=== PATIENT | male | born 1970 | race Caucasian/White ===

== ENCOUNTER 2019-04-18 11:12 | Inpatient (IN) ==
[2019-04-18] MEDS ORDERED: ACETAMINOPHEN 325 MG TABLET PO PRN (11:30)
[2019-04-18] MEDS ORDERED: DOCUSATE SODIUM 100 MG CAPSULE PO PRN (11:30)
[2019-04-18] MEDS ORDERED: ENOXAPARIN 30 MG/0.3 ML SYRINGE SUBCUT SCH (11:30)
[2019-04-18] MEDS: ONDANSETRON 4 MG/2 ML VIAL IV PRN ×2 (13:19→20:03)
[2019-04-18] MEDS: SODIUM CHLORIDE 0.9% 1,000 ML IV SCH (13:26)
[2019-04-18] MEDS ORDERED: LORazepam 1 MG TABLET PO PRN (13:54)
[2019-04-18 14:08] LABS: Basophils % 0.4 % (0.0-0.8); Eosinophils # 0.2 10*3/uL (0.0-0.87); Eosinophils % 1.8 % (0.00-10.9); Hematocrit 30.9 VOL% (42.0-52.0); Hemoglobin 10.6 GM/DL (14.0-18.0); Immature Granulocytes % 1.2 %; Immature Granulocytes Absolute 0.13 #; Lymphocytes # 1.5 10*3/uL (1.4-4.0); Lymphocytes % 13.9 % (21.2-54.2); Mean Corpuscular HGB Conc 34.3 GM/DL (32-36); Mean Corpuscular Volume 113.2 FL (87-102); Mean Platelet Volume 11.9 FL (9.6-12.0); Monocytes % 7.4 % (1.7-12.7); Neutrophils % 75.3 % (38.7-73.9); Platelet Count 182 T/CUMM (130-400); Red Blood Count 2.73 MC/CUMM (3.8-5.5); Red Cell Distribution Width 17.6 % (9.3-17.3); White Blood Count 10.9 T/CUMM (4-12)
[2019-04-18 14:12] LABS: INR 1.1; PT Patient Result 11.7 SECS (9.6-12.2); Partial Thromboplastin Time 25.9 SECS (20.8-36.0)
[2019-04-18 14:38] LABS: Albumin 2.3 G/DL (3.4-5.0); Bilirubin,Total 4.5 MG/DL (0.2-1.0); Calcium 8.5 MG/DL (8.5-10.1); Osmolality,Calculated 275.5 MOS/KG (273-304); Total Protein 6.8 G/DL (6.4-8.3)
[2019-04-18 15:26] LABS: Hepatitis B Core IgM Quant 0.18 Index; Hepatitis B Surface Ag Quant < 0.10 Index; Hepatitis B Surface Ag Result Negative (Negative); Hepatitis C Virus Ab Quant 0.11 Index; Hepatitis C Virus Ab Result Negative (Negative)
[2019-04-18 15:58] LABS: Apearance,Urine CLEAR (Clear); Bilirubin,Urine Negative (Negative); Blood, Urine Negative (Negative); Glucose,Urine (UA) Negative (Negative); Ketones,Urine Negative (Negative); Nitrite,Urine Negative (Negative); Protein,Urine Negative; RBC,Urine 1 /HPF (0-4); Urine Color Yellow (Yellow); Urine Specific Gravity 1.031 (1.001-1.035); Urine Urobilinogen < 2.0 EU/DL (0.2-1.0); WBC,Urine <1 /HPF (0-6)
[2019-04-18] MEDS: PROMETHAZINE 25 MG TABLET PO PRN ×2 (16:17→21:50)
[2019-04-19] MEDS: ONDANSETRON 4 MG/2 ML VIAL IV PRN ×3 (03:22→14:21)
[2019-04-19] MEDS: SODIUM CHLORIDE 0.9% 1,000 ML IV SCH ×2 (03:26→15:53)
[2019-04-19 06:12] LABS: % Iron Saturation 59.2 % (18-50); Albumin 2.1 G/DL (3.4-5.0); Calcium 8.1 MG/DL (8.5-10.1); Osmolality,Calculated 274.5 MOS/KG (273-304); Total Protein 6.2 G/DL (6.4-8.3)
[2019-04-19] MEDS: PANTOPRAZOLE 40 MG TABLET PO SCH (08:18)
[2019-04-19] MEDS ORDERED: ACETAMINOPHEN 325 MG TABLET PO PRN (11:25)
[2019-04-19] MEDS ORDERED: FEXOFENADINE 180 MG TABLET PO PRN (11:43)
[2019-04-19] MEDS: PROMETHAZINE 25 MG TABLET PO PRN ×2 (12:03→21:05)
[2019-04-19] MEDS: LOSARTAN 50 MG TABLET PO SCH (14:23)
[2019-04-19] MEDS: PIPERACILLIN/TAZOBACTAM 3,375 MG in SODIUM CHLORIDE 0.9% 100 ML IV SCH (15:53)
[2019-04-19] MEDS: GABAPENTIN 600 MG TABLET PO SCH (21:05)
[2019-04-20] MEDS: PIPERACILLIN/TAZOBACTAM 3,375 MG in SODIUM CHLORIDE 0.9% 100 ML IV SCH ×3 (01:24→18:04)
[2019-04-20 04:24] LABS: Basophils % 0.6 % (0.0-0.8); Eosinophils # 0.3 10*3/uL (0.0-0.87); Eosinophils % 4.2 % (0.00-10.9); Hematocrit 29.8 VOL% (42.0-52.0); Hemoglobin 9.9 GM/DL (14.0-18.0); Immature Granulocytes % 1.5 %; Lymphocytes # 1.3 10*3/uL (1.4-4.0); Lymphocytes % 19.8 % (21.2-54.2); Mean Corpuscular HGB Conc 33.2 GM/DL (32-36); Mean Corpuscular Volume 115.1 FL (87-102); Mean Platelet Volume 11.5 FL (9.6-12.0); Monocytes % 10.1 % (1.7-12.7); Neutrophils % 63.8 % (38.7-73.9); Platelet Count 162 T/CUMM (130-400); Red Blood Count 2.59 MC/CUMM (3.8-5.5); Red Cell Distribution Width 17.8 % (9.3-17.3); White Blood Count 6.7 T/CUMM (4-12)
[2019-04-20 04:54] LABS: Anisocytosis 1+; Hypochromasia 1+; Platelet Estimate Adequate; Target Cells Few
[2019-04-20 05:02] LABS: Albumin 2.1 G/DL (3.4-5.0); Bilirubin,Total 3.8 MG/DL (0.2-1.0); Osmolality,Calculated 279.1 MOS/KG (273-304); Total Protein 6.1 G/DL (6.4-8.3)
[2019-04-20] MEDS: SODIUM CHLORIDE 0.9% 1,000 ML IV SCH ×2 (06:00→21:00)
[2019-04-20] MEDS: ONDANSETRON 4 MG/2 ML VIAL IV PRN ×2 (07:30→14:58)
[2019-04-20] MEDS: LEVOTHYROXINE 25 MCG TABLET PO SCH (08:35)
[2019-04-20] MEDS: LOSARTAN 50 MG TABLET PO SCH (09:22)
[2019-04-20] MEDS: ALLOPURINOL 100 MG TABLET PO SCH (09:44)
[2019-04-20] MEDS: MONTELUKAST 10 MG TABLET PO SCH (09:44)
[2019-04-20] MEDS: PANTOPRAZOLE 40 MG TABLET PO SCH (09:44)
[2019-04-20] MEDS: GABAPENTIN 600 MG TABLET PO SCH (20:47)
[2019-04-20] MEDS: PROMETHAZINE 25 MG TABLET PO PRN (20:48)
[2019-04-21] MEDS: PIPERACILLIN/TAZOBACTAM 3,375 MG in SODIUM CHLORIDE 0.9% 100 ML IV SCH ×3 (00:41→16:21)
[2019-04-21 06:14] LABS: Basophils % 0.6 % (0.0-0.8); Eosinophils # 0.3 10*3/uL (0.0-0.87); Eosinophils % 4.1 % (0.00-10.9); Hematocrit 29.5 VOL% (42.0-52.0); Hemoglobin 9.7 GM/DL (14.0-18.0); Immature Granulocytes % 1.4 %; Lymphocytes # 1.5 10*3/uL (1.4-4.0); Lymphocytes % 21.1 % (21.2-54.2); Mean Corpuscular HGB Conc 32.9 GM/DL (32-36); Mean Corpuscular Volume 115.7 FL (87-102); Mean Platelet Volume 12.1 FL (9.6-12.0); Monocytes % 9.8 % (1.7-12.7); NRBC # 0.02 10*3/uL; Platelet Count 177 T/CUMM (130-400); Red Blood Count 2.55 MC/CUMM (3.8-5.5)
[2019-04-21 06:41] LABS: Target Cells 1+
[2019-04-21 06:42] LABS: Anisocytosis 1+; Macrocytosis 1+; Platelet Estimate Normal
[2019-04-21 06:54] LABS: Bilirubin,Total 4.1 MG/DL (0.2-1.0); Calcium 8.1 MG/DL (8.5-10.1); Osmolality,Calculated 275.4 MOS/KG (273-304); Total Protein 6.2 G/DL (6.4-8.3)
[2019-04-21] MEDS: LEVOTHYROXINE 25 MCG TABLET PO SCH ×2 (07:42→08:56)
[2019-04-21] MEDS: ALLOPURINOL 100 MG TABLET PO SCH (08:56)
[2019-04-21] MEDS: oxyCODONE IR 5 MG TABLET PO PRN ×2 (08:56→16:15)
[2019-04-21] MEDS: MONTELUKAST 10 MG TABLET PO SCH (08:56)
[2019-04-21] MEDS: ONDANSETRON 4 MG/2 ML VIAL IV PRN (08:57)
[2019-04-21] MEDS: PANTOPRAZOLE 40 MG TABLET PO SCH (08:57)
[2019-04-21] MEDS: SODIUM CHLORIDE 0.9% 1,000 ML IV SCH ×2 (08:58→22:53)
[2019-04-21] MEDS: LOSARTAN 50 MG TABLET PO SCH (08:58)
[2019-04-21] MEDS: GABAPENTIN 600 MG TABLET PO SCH (20:38)
[2019-04-21] MEDS: PROMETHAZINE 25 MG TABLET PO PRN (20:38)
[2019-04-22] MEDS: PIPERACILLIN/TAZOBACTAM 3,375 MG in SODIUM CHLORIDE 0.9% 100 ML IV SCH ×3 (00:15→17:20)
[2019-04-22] MEDS: oxyCODONE IR 5 MG TABLET PO PRN ×2 (00:15→15:23)
[2019-04-22 04:41] LABS: Basophils % 0.5 % (0.0-0.8); Eosinophils # 0.3 10*3/uL (0.0-0.87); Eosinophils % 4.1 % (0.00-10.9); Hemoglobin 9.4 GM/DL (14.0-18.0); Immature Granulocytes % 1.1 %; Immature Granulocytes Absolute 0.08 #; Lymphocytes # 1.7 10*3/uL (1.4-4.0); Lymphocytes % 22.9 % (21.2-54.2); Mean Corpuscular HGB Conc 33.6 GM/DL (32-36); Mean Corpuscular Volume 115.7 FL (87-102); Mean Platelet Volume 11.8 FL (9.6-12.0); Monocytes % 10.5 % (1.7-12.7); Neutrophils % 60.9 % (38.7-73.9); Platelet Count 180 T/CUMM (130-400); Red Blood Count 2.42 MC/CUMM (3.8-5.5); Red Cell Distribution Width 17.2 % (9.3-17.3); White Blood Count 7.4 T/CUMM (4-12)
[2019-04-22 05:06] LABS: Albumin 2.1 G/DL (3.4-5.0); Bilirubin,Total 2.8 MG/DL (0.2-1.0); Calcium 7.8 MG/DL (8.5-10.1); Osmolality,Calculated 273.5 MOS/KG (273-304); Total Protein 6.2 G/DL (6.4-8.3)
[2019-04-22 05:13] LABS: Hypochromasia 1+; Macrocytosis Slight; Platelet Estimate Adequate
[2019-04-22] MEDS ORDERED: MIDAZOLAM 2 MG/2 ML VIAL IV ONE (08:52)
[2019-04-22] MEDS ORDERED: fentaNYL 100 MCG/2 ML VIAL IV ONE (08:52)
[2019-04-22] MEDS ORDERED: DIAZEPAM 5 MG TABLET PO ONE (10:00)
[2019-04-22 11:56] LABS: Antinuclear Ab, S 0.3 U; Cyclic Citrull Peptide Ab Mayo < 15.6 U
[2019-04-22] MEDS ORDERED: ONDANSETRON 4 MG/2 ML VIAL ONE (13:40)
[2019-04-22] MEDS ORDERED: MIDAZOLAM 2 MG/2 ML VIAL ONE (13:40)
[2019-04-22] MEDS ORDERED: fentaNYL 100 MCG/2 ML VIAL ONE (13:40)
[2019-04-22] MEDS: ONDANSETRON 4 MG/2 ML VIAL IV PRN (14:08)
[2019-04-22] MEDS: PANTOPRAZOLE 40 MG TABLET PO SCH (15:23)
[2019-04-22] MEDS: LOSARTAN 50 MG TABLET PO SCH (15:24)
[2019-04-22] MEDS: LEVOTHYROXINE 25 MCG TABLET PO SCH (15:24)
[2019-04-22] MEDS: ALLOPURINOL 100 MG TABLET PO SCH (15:24)
[2019-04-22] MEDS: MONTELUKAST 10 MG TABLET PO SCH (15:24)
[2019-04-22 16:02] VITALS: BP 115/74
[2019-04-22] MEDS: SODIUM CHLORIDE 0.9% 1,000 ML IV SCH (18:14)
== END 2019-04-22 18:30 | disposition home or self-care (01) | DRG 445 ==
LOC: N.2E
PROVIDERS: ADMIT Family Medicine; ATTEND Family Medicine

== ENCOUNTER 2019-05-30 10:00 | Inpatient (IN) ==
[2019-05-30] MEDS ORDERED: LACTATED RINGERS 1,000 ML IV ONE (14:05)
[2019-05-30] MEDS: ONDANSETRON 4 MG/2 ML VIAL IV PRN ×2 (14:20→19:15)
[2019-05-30] MEDS ORDERED: BISACODYL 5 MG TABLET PO PRN (14:23)
[2019-05-30] MEDS ORDERED: ALBUTEROL/IPRATROPIUM 3 ML NEB RESP TX PRN (14:23)
[2019-05-30] MEDS ORDERED: HYDROmorphone 2 MG/1 ML VIAL IV PRN (14:23)
[2019-05-30] MEDS ORDERED: LACTATED RINGERS 1,000 ML IV SCH (14:30)
[2019-05-30] MEDS ORDERED: PIPERACILLIN/TAZOBACTAM 3,375 MG in SODIUM CHLORIDE 0.9% 100 ML IV SCH (14:30)
[2019-05-30 15:04] LABS: Basophils # 0.1 10*3/uL (0.0-0.2); Basophils % 0.2 % (0.0-0.8); Hematocrit 43.4 VOL% (42.0-52.0); Hemoglobin 15.6 GM/DL (14.0-18.0); Immature Granulocytes % 2.2 %; Immature Granulocytes Absolute 0.58 #; Lymphocytes # 2.2 10*3/uL (1.4-4.0); Mean Corpuscular HGB Conc 35.9 GM/DL (32-36); Mean Corpuscular Volume 101.9 FL (87-102); Mean Platelet Volume 11.1 FL (9.6-12.0); Monocytes % 6.8 % (1.7-12.7); Neutrophils % 82.8 % (38.7-73.9); Platelet Count 542 T/CUMM (130-400); Red Blood Count 4.26 MC/CUMM (3.8-5.5); Red Cell Distribution Width 12.4 % (9.3-17.3)
[2019-05-30 15:23] LABS: Albumin 4.4 G/DL (3.4-5.0); Bilirubin,Total 0.9 MG/DL (0.2-1.0); Calcium 10.7 MG/DL (8.5-10.1); Osmolality,Calculated 251.9 MOS/KG (273-304); Total Protein 9.5 G/DL (6.4-8.3)
[2019-05-30] MEDS: SODIUM CHLORIDE 0.9% 1,000 ML IV SCH (15:27)
[2019-05-30] MEDS ORDERED: SODIUM CHLORIDE 0.9% 1,000 ML IV ONE (15:45)
[2019-05-30] MEDS ORDERED: CALCIUM GLUCONATE 1,000 MG in SODIUM CHLORIDE 0.9% 100 ML IV ONE (15:45)
[2019-05-30 17:03] LABS: Lymphocytes 6 % (20-55); Platelet Estimate Increased; Segmented Neutrophils 83 % (50-85); Total Cells Counted 100
[2019-05-30 18:32] LABS: Calcium 9.9 MG/DL (8.5-10.1); Osmolality,Calculated 254.6 MOS/KG (273-304)
[2019-05-30 18:43] LABS: Free T4 (Free Thyroxine) 1.22 NG/DL (0.76-1.46); Thyroid Stimulating Hormone 4.32 uIU/ml (0.358-3.74)
[2019-05-30] MEDS: GABAPENTIN 600 MG TABLET PO SCH (21:26)
[2019-05-30] MEDS: DOCUSATE SODIUM 100 MG CAPSULE PO SCH (21:26)
[2019-05-31] MEDS ORDERED: SODIUM CHLORIDE 0.9% 100 ML IV ONE (01:57)
[2019-05-31] MEDS: ONDANSETRON 4 MG/2 ML VIAL IV PRN ×3 (02:00→11:49)
[2019-05-31] MEDS: PIPERACILLIN/TAZOBACTAM 3,375 MG in SODIUM CHLORIDE 0.9% 100 ML IV SCH ×2 (02:01→14:52)
[2019-05-31 02:28] LABS: INR 1.1; PT Patient Result 11.4 SECS (9.6-12.2)
[2019-05-31 02:38] LABS: Calcium 8.8 MG/DL (8.5-10.1)
[2019-05-31] MEDS: SODIUM CHLORIDE 0.9% 1,000 ML IV SCH ×3 (02:49→18:38)
[2019-05-31 02:50] LABS: Basophils # 0.1 10*3/uL (0.0-0.2); Basophils % 0.2 % (0.0-0.8); Hematocrit 37.1 VOL% (42.0-52.0); Hemoglobin 13.5 GM/DL (14.0-18.0); Immature Granulocytes % 1.7 %; Immature Granulocytes Absolute 0.46 #; Lymphocytes # 2.1 10*3/uL (1.4-4.0); Lymphocytes % 7.7 % (21.2-54.2); Mean Corpuscular HGB Conc 36.4 GM/DL (32-36); Mean Platelet Volume 11.2 FL (9.6-12.0); Monocytes % 8.4 % (1.7-12.7); Platelet Count 440 T/CUMM (130-400); Red Blood Count 3.71 MC/CUMM (3.8-5.5); Red Cell Distribution Width 12.1 % (9.3-17.3); White Blood Count 27.5 T/CUMM (4-12)
[2019-05-31 03:10] LABS: Lymphocytes 11 % (20-55); Segmented Neutrophils 85 % (50-85); Total Cells Counted 100
[2019-05-31 03:11] LABS: Platelet Estimate Increased
[2019-05-31 03:12] LABS: Macrocytosis Slight
[2019-05-31 03:13] LABS: Polychromasia Slight
[2019-05-31 03:14] LABS: Spherocytes Slight
[2019-05-31 04:21] LABS: Amorphous Crystals,Urine Occasional /HPF (Few); Apearance,Urine CLOUDY (Clear); Bacteria,Urine Occasional /HPF (Few); Bilirubin,Urine Negative (Negative); Blood, Urine Small mg/dL (Negative); Glucose,Urine (UA) Negative (Negative); Hyaline Casts,Urine 31 /LPF (0-3); Ketones,Urine Negative (Negative); Mucus,Urine Occasional /LPF (Occasional); Nitrite,Urine Negative (Negative); Protein,Urine 30 MG/DL; RBC,Urine 7 /HPF (0-4); Squamous Epithelial Cell,Urine Occasional /HPF (0-10); Urine Specific Gravity 1.015 (1.001-1.035); Urine Urobilinogen < 2.0 EU/DL (0.2-1.0); WBC,Urine 14 /HPF (0-6)
[2019-05-31 04:22] LABS: Urine Color Yellow (Yellow)
[2019-05-31 05:40] LABS: Calcium 8.9 MG/DL (8.5-10.1)
[2019-05-31] MEDS: LEVOTHYROXINE 25 MCG TABLET PO SCH (06:00)
[2019-05-31] MEDS ORDERED: SODIUM CHLORIDE 3% INJ 500 ML IV SCH (08:00)
[2019-05-31] MEDS: DOCUSATE SODIUM 100 MG CAPSULE PO SCH ×2 (08:39→21:44)
[2019-05-31] MEDS: MONTELUKAST 10 MG TABLET PO SCH (08:42)
[2019-05-31] MEDS: PANTOPRAZOLE 40 MG TABLET PO SCH (08:42)
[2019-05-31 08:43] LABS: Calcium 8.7 MG/DL (8.5-10.1); Osmolality,Calculated 254.9 MOS/KG (273-304)
[2019-05-31] MEDS ORDERED: ALLOPURINOL 100 MG TABLET PO SCH (09:00)
[2019-05-31 10:16] LABS: Calcium 8.4 MG/DL (8.5-10.1); Osmolality,Calculated 257.8 MOS/KG (273-304)
[2019-05-31] MEDS ORDERED: PROMETHAZINE INJ 12.5 MG in SODIUM CHLORIDE 0.9% 50 ML IV PRN (11:53)
[2019-05-31 12:52] LABS: Calcium 8.7 MG/DL (8.5-10.1); Osmolality,Calculated 259.3 MOS/KG (273-304)
[2019-05-31 16:56] LABS: Calcium 8.5 MG/DL (8.5-10.1); Osmolality,Calculated 262.2 MOS/KG (273-304)
[2019-05-31] MEDS: ACETAMINOPHEN 325 MG TABLET PO PRN (21:44)
[2019-05-31] MEDS: PROMETHAZINE INJ 25 MG in SODIUM CHLORIDE 0.9% 50 ML IV PRN (21:44)
[2019-05-31] MEDS: GABAPENTIN 600 MG TABLET PO SCH (21:44)
[2019-06-01] MEDS: SODIUM CHLORIDE 0.9% 1,000 ML IV SCH ×2 (01:29→08:31)
[2019-06-01] MEDS: PIPERACILLIN/TAZOBACTAM 3,375 MG in SODIUM CHLORIDE 0.9% 100 ML IV SCH ×2 (03:17→15:32)
[2019-06-01 04:06] LABS: Basophils % 0.1 % (0.0-0.8); Hematocrit 31.5 VOL% (42.0-52.0); Hemoglobin 11.4 GM/DL (14.0-18.0); Immature Granulocytes % 0.6 %; Immature Granulocytes Absolute 0.08 #; Lymphocytes # 1.4 10*3/uL (1.4-4.0); Lymphocytes % 11.1 % (21.2-54.2); Mean Corpuscular HGB Conc 36.2 GM/DL (32-36); Mean Corpuscular Volume 100.6 FL (87-102); Mean Platelet Volume 11.2 FL (9.6-12.0); Monocytes % 14.4 % (1.7-12.7); Neutrophils % 73.8 % (38.7-73.9); Platelet Count 282 T/CUMM (130-400); Red Blood Count 3.13 MC/CUMM (3.8-5.5); Red Cell Distribution Width 12.5 % (9.3-17.3); White Blood Count 12.7 T/CUMM (4-12)
[2019-06-01 04:20] LABS: Calcium 8.3 MG/DL (8.5-10.1); Osmolality,Calculated 276.1 MOS/KG (273-304)
[2019-06-01] MEDS: LEVOTHYROXINE 25 MCG TABLET PO SCH (06:46)
[2019-06-01] MEDS: PROMETHAZINE INJ 25 MG in SODIUM CHLORIDE 0.9% 50 ML IV PRN ×2 (06:48→15:33)
[2019-06-01] MEDS: ACETAMINOPHEN 325 MG TABLET PO PRN ×2 (08:29→19:30)
[2019-06-01] MEDS: DOCUSATE SODIUM 100 MG CAPSULE PO SCH ×2 (08:29→21:21)
[2019-06-01] MEDS: MONTELUKAST 10 MG TABLET PO SCH (08:30)
[2019-06-01] MEDS: PANTOPRAZOLE 40 MG TABLET PO SCH (08:30)
[2019-06-01] MEDS ORDERED: DESMOPRESSIN 10 MCG NASAL SPRAY 5 ML BOTTLE BOTH NARES ONE (10:08)
[2019-06-01] MEDS: DEXTROSE 5% 250 ML IV SCH ×2 (11:50→12:05)
[2019-06-01 18:19] LABS: Calcium 8.6 MG/DL (8.5-10.1); Osmolality,Calculated 279.5 MOS/KG (273-304)
[2019-06-01] MEDS: ONDANSETRON 4 MG/2 ML VIAL IV PRN (19:31)
[2019-06-01] MEDS: GABAPENTIN 600 MG TABLET PO SCH (21:21)
[2019-06-02] MEDS: PROMETHAZINE INJ 25 MG in SODIUM CHLORIDE 0.9% 50 ML IV PRN ×3 (03:06→22:04)
[2019-06-02] MEDS: PIPERACILLIN/TAZOBACTAM 3,375 MG in SODIUM CHLORIDE 0.9% 100 ML IV SCH ×2 (03:35→15:53)
[2019-06-02 05:37] LABS: Calcium 8.5 MG/DL (8.5-10.1); Osmolality,Calculated 278.2 MOS/KG (273-304)
[2019-06-02] MEDS: LEVOTHYROXINE 25 MCG TABLET PO SCH (06:23)
[2019-06-02] MEDS: PANTOPRAZOLE 40 MG TABLET PO SCH (09:43)
[2019-06-02] MEDS: MONTELUKAST 10 MG TABLET PO SCH (09:43)
[2019-06-02] MEDS: DOCUSATE SODIUM 100 MG CAPSULE PO SCH ×2 (09:43→21:52)
[2019-06-02] MEDS ORDERED: POLYETHYLENE GLYCOL POWDER 17 GM PACK PO PRN (10:08)
[2019-06-02] MEDS ORDERED: BISACODYL 10 MG SUPP RECTAL PRN (10:08)
[2019-06-02] MEDS: ACETAMINOPHEN 325 MG TABLET PO PRN (13:14)
[2019-06-02] MEDS: GABAPENTIN 600 MG TABLET PO SCH (21:52)
[2019-06-03] MEDS: PIPERACILLIN/TAZOBACTAM 3,375 MG in SODIUM CHLORIDE 0.9% 100 ML IV SCH ×3 (03:55→21:11)
[2019-06-03] MEDS: LEVOTHYROXINE 25 MCG TABLET PO SCH (06:26)
[2019-06-03] MEDS ORDERED: DIAZEPAM 5 MG TABLET PO ONE (09:09)
[2019-06-03] MEDS ORDERED: FAMOTIDINE 20 MG TABLET PO ONE (09:10)
[2019-06-03 09:13] LABS: Basophils % 0.2 % (0.0-0.8); Eosinophils # 0.2 10*3/uL (0.0-0.87); Eosinophils % 1.7 % (0.00-10.9); Hematocrit 34.7 VOL% (42.0-52.0); Hemoglobin 12.2 GM/DL (14.0-18.0); Immature Granulocytes % 0.7 %; Immature Granulocytes Absolute 0.09 #; Lymphocytes # 1.9 10*3/uL (1.4-4.0); Lymphocytes % 16.1 % (21.2-54.2); Mean Corpuscular HGB Conc 35.2 GM/DL (32-36); Mean Corpuscular Volume 103.6 FL (87-102); Monocytes % 13.3 % (1.7-12.7); Platelet Count 266 T/CUMM (130-400); Red Blood Count 3.35 MC/CUMM (3.8-5.5); Red Cell Distribution Width 12.3 % (9.3-17.3)
[2019-06-03 09:32] LABS: Calcium 8.9 MG/DL (8.5-10.1); Osmolality,Calculated 269.4 MOS/KG (273-304)
[2019-06-03] MEDS ORDERED: BUPIVACAINE MPF 0.25% 30 ML VIAL ONE (10:13)
[2019-06-03] MEDS ORDERED: LIDOCAINE 1%/EPI INJ 20 ML VIAL ONE (10:13)
[2019-06-03] MEDS ORDERED: TISSUE ADHESIVE 1 EACH APPLICATOR TOP ONE (10:14)
[2019-06-03] MEDS ORDERED: MIDAZOLAM 2 MG/2 ML VIAL ONE (12:37)
[2019-06-03] MEDS ORDERED: LIDOCAINE 2% 5 ML VIAL ONE (12:37)
[2019-06-03] MEDS ORDERED: PROPOFOL 200 MG/20 ML VIAL IV ONE (12:37)
[2019-06-03] MEDS ORDERED: fentaNYL 100 MCG/2 ML VIAL ONE (12:38)
[2019-06-03] MEDS ORDERED: ROCURONIUM 100 MG/10 ML VIAL IV ONE (12:38)
[2019-06-03] MEDS ORDERED: GLYCOPYRROLATE 0.4 MG/2 ML VIAL ONE (12:38)
[2019-06-03] MEDS ORDERED: DEXAMETHASONE 4 MG/1 ML VIAL ONE (12:38)
[2019-06-03] MEDS ORDERED: SEVOFLURANE 1 UNIT/15 MINUTE INH ONE (12:38)
[2019-06-03] MEDS ORDERED: ONDANSETRON 4 MG/2 ML VIAL ONE ×2 (12:38→13:12)
[2019-06-03] MEDS ORDERED: NEOSTIGMINE 10 MG/10 ML VIAL ONE (12:38)
[2019-06-03] MEDS: ONDANSETRON 4 MG/2 ML VIAL IV PRN (13:10)
[2019-06-03] MEDS ORDERED: HYDROmorphone 2 MG/1 ML VIAL ONE (13:23)
[2019-06-03] MEDS ORDERED: HYDROmorphone 2 MG/1 ML VIAL IV PRN (13:26)
[2019-06-03] MEDS: DOCUSATE SODIUM 100 MG CAPSULE PO SCH ×2 (14:05→21:11)
[2019-06-03] MEDS: MONTELUKAST 10 MG TABLET PO SCH (14:05)
[2019-06-03] MEDS: PANTOPRAZOLE 40 MG TABLET PO SCH (14:05)
[2019-06-03] MEDS: HYDROmorphone 2 MG/1 ML VIAL IV PRN ×2 (17:46→21:25)
[2019-06-03] MEDS: PROMETHAZINE INJ 25 MG in SODIUM CHLORIDE 0.9% 50 ML IV PRN (17:55)
[2019-06-03] MEDS: GABAPENTIN 600 MG TABLET PO SCH (21:11)
[2019-06-04] MEDS: HYDROmorphone 2 MG/1 ML VIAL IV PRN ×7 (02:04→23:11)
[2019-06-04] MEDS: PROMETHAZINE INJ 25 MG in SODIUM CHLORIDE 0.9% 50 ML IV PRN (02:06)
[2019-06-04] MEDS: PIPERACILLIN/TAZOBACTAM 3,375 MG in SODIUM CHLORIDE 0.9% 100 ML IV SCH ×3 (05:11→21:06)
[2019-06-04] MEDS: ONDANSETRON 4 MG/2 ML VIAL IV PRN ×2 (05:26→21:20)
[2019-06-04 05:59] LABS: Basophils % 0.1 % (0.0-0.8); Eosinophils # 0.1 10*3/uL (0.0-0.87); Eosinophils % 0.3 % (0.00-10.9); Immature Granulocytes % 0.8 %; Immature Granulocytes Absolute 0.16 #; Lymphocytes # 1.7 10*3/uL (1.4-4.0); Lymphocytes % 8.5 % (21.2-54.2); Mean Corpuscular HGB Conc 34.3 GM/DL (32-36); Mean Corpuscular Volume 104.8 FL (87-102); Mean Platelet Volume 11.6 FL (9.6-12.0); Monocytes % 8.2 % (1.7-12.7); Neutrophils % 82.1 % (38.7-73.9); Platelet Count 296 T/CUMM (130-400); Red Blood Count 3.34 MC/CUMM (3.8-5.5); Red Cell Distribution Width 12.4 % (9.3-17.3)
[2019-06-04] MEDS: LEVOTHYROXINE 25 MCG TABLET PO SCH (06:19)
[2019-06-04 06:30] LABS: Albumin 3.5 G/DL (3.4-5.0); Bilirubin,Total 0.7 MG/DL (0.2-1.0); Calcium 9.1 MG/DL (8.5-10.1); Osmolality,Calculated 267.5 MOS/KG (273-304); Total Protein 7.7 G/DL (6.4-8.3)
[2019-06-04] MEDS: MONTELUKAST 10 MG TABLET PO SCH (08:16)
[2019-06-04] MEDS: DOCUSATE SODIUM 100 MG CAPSULE PO SCH ×2 (08:16→21:05)
[2019-06-04] MEDS: PANTOPRAZOLE 40 MG TABLET PO SCH (08:16)
[2019-06-04] MEDS: GABAPENTIN 600 MG TABLET PO SCH (21:05)
[2019-06-05] MEDS: HYDROmorphone 2 MG/1 ML VIAL IV PRN ×2 (01:10→05:30)
[2019-06-05] MEDS: PROMETHAZINE INJ 25 MG in SODIUM CHLORIDE 0.9% 50 ML IV PRN (05:22)
[2019-06-05 05:24] LABS: Basophils % 0.2 % (0.0-0.8); Eosinophils # 0.6 10*3/uL (0.0-0.87); Eosinophils % 3.1 % (0.00-10.9); Hematocrit 34.9 VOL% (42.0-52.0); Hemoglobin 11.9 GM/DL (14.0-18.0); Immature Granulocytes % 1.2 %; Immature Granulocytes Absolute 0.21 #; Lymphocytes # 2.5 10*3/uL (1.4-4.0); Lymphocytes % 13.6 % (21.2-54.2); Mean Corpuscular HGB Conc 34.1 GM/DL (32-36); Mean Corpuscular Volume 105.4 FL (87-102); Mean Platelet Volume 10.8 FL (9.6-12.0); Monocytes % 10.4 % (1.7-12.7); Neutrophils % 71.5 % (38.7-73.9); Platelet Count 240 T/CUMM (130-400); Red Blood Count 3.31 MC/CUMM (3.8-5.5); Red Cell Distribution Width 12.5 % (9.3-17.3); White Blood Count 18.2 T/CUMM (4-12)
[2019-06-05 05:42] LABS: Albumin 3.3 G/DL (3.4-5.0); Bilirubin,Total 0.5 MG/DL (0.2-1.0); Calcium 8.8 MG/DL (8.5-10.1); Osmolality,Calculated 269.2 MOS/KG (273-304); Total Protein 7.1 G/DL (6.4-8.3)
[2019-06-05] MEDS: PIPERACILLIN/TAZOBACTAM 3,375 MG in SODIUM CHLORIDE 0.9% 100 ML IV SCH (05:58)
[2019-06-05] MEDS: LEVOTHYROXINE 25 MCG TABLET PO SCH (06:02)
[2019-06-05 07:57] VITALS: BP 124/62
[2019-06-05] MEDS: PANTOPRAZOLE 40 MG TABLET PO SCH (09:37)
[2019-06-05] MEDS: DOCUSATE SODIUM 100 MG CAPSULE PO SCH (09:37)
[2019-06-05] MEDS: MONTELUKAST 10 MG TABLET PO SCH (09:37)
== END 2019-06-05 12:50 | disposition home or self-care (01) | DRG 660 ==
LOC: N.3E → OBSVTOIN 12:14 → N.CC 05-31 09:05 → N.3E 06-01 13:58
PROVIDERS: ADMIT Surgery; ATTEND Surgery
PROC: LAPCHOL (2019-06-03 11:03)